=== PATIENT | male | born 1975 | race Two or more races ===

== ENCOUNTER 2017-06-12 13:19 | Emergency (ER) | payer OTHER ==
[2017-06-12 13:51] VITALS: BMI 45.6
--- NOTE | 2017-06-12 14:41 | PDOC ---
History of Present Illness - General Chief Complaint: Headache Stated Complaint: HEADACHE Time Seen by Provider: 06/12/17 14:24 - History of Present Illness Initial Comments: 06/12/17 14:39 41 yo M with h/o COPD, migraines, and opioid dependence who presents with HOLM. Patient reports sudden onset severe, bitemporal, pulsating, and sharp quality headache with retrobulbar radiation 1 hour [employer]. Associated with transient period of vertigo, upper extremity numbness/tingling, tremulousness, nausea, and warm skin flushing prior to onset of headache. + Photobphobia and visual halos. Denies olfactory sensation, tension type quality, or lacrimation/ rhinorrhea or other autonomic complaints. Attempted warm bath and Aleve for HOLM with no relief. Denies chest pain, SOB, weakness, seizures, vomiting, abdominal pain, urinary complaints, LOC. Drinks 7-8 cups/coffee per day. Denies h/o prior head imaging. No neurologist. PCP is Past History - Past Medical History Allergies/Adverse Reactions: Allergies Allergy/AdvReac Type Severity Reaction Status Date / Time No Known Allergies Allergy Verified 06/12/17 15:44 Home Medications: Ambulatory Orders NK [No Known Home Medication] 01/25/15 COPD: Yes Other medical history: headaches - Immunization History Immunization Up to Date: No - Suicide/Smoking/Psychosocial Hx Smoking History: Current every day smoker Have you smoked in the past 12 months: Yes Number of Cigarettes Smoked Daily: 12 Information on smoking cessation initiated: Yes 'Breaking Loose' booklet given: 06/12/17 Hx Alcohol Use: No Drug/Substance Use Hx: No Substance Use Type: None Review of Systems - Review of Systems Comments:: 06/12/17 14:40 GENERAL/CONSTITUTIONAL: No fever or chills. No weakness. HEAD, EYES, EARS, NOSE AND THROAT: No change in vision. No ear pain or discharge. No sore throat.- CARDIOVASCULAR: No chest pain or shortness of breath RESPIRATORY: No cough, wheezing, or hemoptysis. GASTROINTESTINAL: + nausea. No vomiting, diarrhea or constipation. GENITOURINARY: No dysuria, frequency, or change in urination. MUSCULOSKELETAL: No joint or muscle swelling or pain. No neck or back pain. SKIN: No rash NEUROLOGIC: + headache, vertigo, loss of consciousness, or change in strength/ sensation. ENDOCRINE: No increased thirst. No abnormal weight change HEMATOLOGIC/LYMPHATIC: No anemia, easy bleeding, or history of blood clots. ALLERGIC/IMMUNOLOGIC: No hives or skin allergy. *Physical Exam - Vital Signs Last Vital Signs Temp Pulse Resp BP Pulse Ox 98.9 F 96 H 16 144/82 98 06/12/17 13:47 06/12/17 13:47 06/12/17 13:47 06/12/17 13:47 06/12/17 13:47 - Physical Exam Comments: 06/12/17 14:40 GENERAL: Awake, alert, and fully oriented, in no acute distress HEAD: No signs of trauma, normocephalic, atraumatic EYES: PERRLA, EOMI, sclera anicteric, conjunctiva clear ENT:Hearing grossly normal, nares patent, oropharynx clear without exudates. Moist mucosa NECK: Normal ROM, no JVD, or masses LUNGS: No distress, speaks full sentences, clear to auscultation bilaterally HEART: Regular rate and rhythm, normal S1 and S2, no murmurs, rubs or gallops, peripheral pulses normal and equal bilaterally. EXTREMITIES : Normal inspection, Normal range of motion, no edema. No clubbing or cyanosis. NEUROLOGICAL: Cranial nerves II through XII grossly intact. Normal speech, normal gait, no focal sensorimotor deficits. Normal TATI, and absent dysmetria on FTN. 5/5 strength in BL UE/LE. Reflexes 2+ BL. SKIN: Warm, Dry, normal turgor, no rashes or lesions noted. ED Treatment Course - LABORATORY CBC & Chemistry Diagram: 06/12/17 15:15 06/12/17 15:15 Medical Decision Making - Medical Decision Making 06/12/17 14:40 41 yo M with h/o COPD, migraines, and opioid dependence who presents with sudden onset severe, bitemporal, pulsating, and sharp quality headache with retrobulbar radiation 1 hour [employer]. No focal neruo deficits on physical exam and hemodynamically stable. Will obtain Head CT to r/o SAH in setting of rapid onset, and maximal intensity HOLM. Low suspicion for meningitis with absent meningismus, non toxic appearing, absent fevers/chills. Consider metabolic workup for cause of HOLM. Suspect that this is migraine w/aura. Will treat symptomatically. ED Course: CBC, CMP CT HEAD NON CON Reglan 10 mg , Diphenhydramine 25 mg, 1 L NS, Toradol 30 IVP 06/12/17 16:22 CBC Unremarkable 06/12/17 17:12 CMP: Unremarkable CT HEAD: No acute intracranial pathology. Mucosal thickening of ethmoid air cells. Patient is stable for D/c with return precatutions and referall to outpatient neurology. *DC/Admit/Observation/Transfer Diagnosis at time of Disposition: Migraine Qualifiers: Migraine type: with aura Status migrainosus presence: without status migrainosus Intractability: intractable Qualified Code(s): G43.119 - Migraine with aura, intractable, without status migrainosus - Discharge Dispostion Disposition: HOME Condition at time of disposition: Stable Admit: No - Referrals Referrals: Willard Jaimes MD [Staff Physician] - Son Caceres MD [Staff Physician] - - Patient Instructions Printed Discharge Instructions: Migraine -- Adult Additional Instructions: Please return to the emergency department with new or worsening symtpoms or concerns. Please follow up with neurology outpatient and primary care physican. - Post Discharge Activity - Attestations Physician Attestion: 06/12/17 17:15 I attest to the information provided in this note.
[2017-06-12] MEDS ORDERED: METOCLOPRAMIDE HCL INJECTION 10 MG/2 ML VIAL IVPUSH ONE (14:58)
[2017-06-12] MEDS ORDERED: SODIUM CHLORIDE 1,000 ML IV STA (14:58)
[2017-06-12] MEDS ORDERED: KETOROLAC TROMETHAMINE 60 MG/2 ML VIAL IM ONE (15:04)
[2017-06-12] MEDS ORDERED: KETOROLAC TROMETHAMINE 30 MG/1 ML VIAL IVPUSH ONE (15:05)
[2017-06-12] MEDS ORDERED: METOCLOPRAMIDE HCL INJECTION 10 MG/2 ML VIAL ONE (15:27)
[2017-06-12 15:41] LABS: BASOPHIL 0.1 % (0-2.0); EOSINOPHIL 0.2 % (0-4.5); MCH 27.2 pg (25.7-33.7); MCHC 33.4 g/dl (32.0-35.9); MEAN CELL VOLUME 81.5 fl (80-96); MEAN PLT VOLUME 7.4 fl (7.5-11.1); NEUTROPHILS 89.2 % (42.8-82.8); PLATELET COUNT 266 K/MM3 (134-434); RDW 14.7 % (11.9-15.9); WHITE BLOOD COUNT 11.9 K/mm3 (4.0-10.0)
--- NOTE | 2017-06-12 15:47 | PDOC ---
Attending Attestation - Resident Resident Name: Jass Arnold - ED Attending Attestation I have performed the following: I have examined & evaluated the patient, The case was reviewed & discussed with the resident, I agree w/resident's findings & plan, Exceptions are as noted - HPI HPI: 06/12/17 17:04 41-year-old male with a history of migraines and frequent headaches here today complaining of worse headache than usual. Patient denies fevers chills, no head trauma. No weakness. Unsure what triggered this headache however does state that his is currently sick with a pneumonia and a viral syndrome. No nausea no vomiting no weakness no other current complaints denies sinus congestion - Physicial Exam PE: 06/12/17 17:05 awake alert no acute distressLungs are clear bilaterally to auscultation. Heart is regular no murmurs rubs or gallops. Abdomen soft and nontender. Extremities warm well perfused no edema. Neurological alert and oriented 3, 5 / 5 all 4 extremities strength. Skin warm and dry no rash - Medical Decision Making 06/12/17 17:06 41-year-old male Plan CT head to rul, electrolytes, And symptom cControl. Patient is feeling better following medications. Labs and electrolytes are normal. CT head is unremarkable. We'll discharge home with neurology follow-up Heart Score/ECG Review #1 General ECG Interpretation: Sinus Rhythm, Normal Rate (91), Normal Intervals, No acute ischemic changes
[2017-06-12] MEDS ORDERED: KETOROLAC TROMETHAMINE 30 MG/1 ML VIAL ONE (15:53)
[2017-06-12 16:01] LABS: ALBUMIN 4.1 g/dl (3.4-5.0); ALK PHOS 106 U/L (45-117); ANION GAP 12 (8-16); BILIRUBIN,TOTAL 0.3 mg/dL (0.2-1.0); CALCIUM 8.6 mg/dL (8.5-10.1); CO2 24 mmol/L (21-32); CREATININE 0.8 mg/dL (0.7-1.3); GLUCOSE,RANDOM 102 mg/dL (74-106); SGOT/AST 34 U/L (15-37); SGPT/ALT 51 U/L (12-78); TOT PROT 7.7 g/dl (6.4-8.2)
[2017-06-12 17:30] VITALS: BP 144/80; PULSE 94; TEMP 98.6
== END 2017-06-12 17:30 | disposition home or self-care (01) ==
LOC: JER 13:19
PROC: 3E0333Z Introduction of Anti-inflammatory into Peripheral Vein, Percutaneous Approach (ICD-10-PCS; principal; 2017-06-12)
PROC: 3E033GC Introduction of Other Therapeutic Substance into Peripheral Vein, Percutaneous Approach (ICD-10-PCS; 2017-06-12)
PROC: 3E033GC Introduction of Other Therapeutic Substance into Peripheral Vein, Percutaneous Approach (ICD-10-PCS; 2017-06-12)
DX: G43.119 Migraine with aura, intractable, without status migrainosus (principal); F11.20 Opioid dependence, uncomplicated; J44.9 Chronic obstructive pulmonary disease, unspecified; F17.210 Nicotine dependence, cigarettes, uncomplicated
CPT/HCPCS: 36415; 70450-TC; 80053; 85025; 99281-25

== ENCOUNTER 2017-09-16 23:10 | Emergency (ER) | payer OTHER ==
[2017-09-16 23:31] VITALS: BP 108/69; PULSE 98; TEMP 100.1; BMI 27.3
--- NOTE | 2017-09-17 02:19 | PDOC ---
History of Present Illness - General Chief Complaint: Eye Problem Stated Complaint: EYE PAIN Time Seen by Provider: 09/17/17 02:06 History Source: Patient Exam Limitations: No Limitations - History of Present Illness Initial Comments: CHIEF COMPLAINT: 41 y/o male with tender swollen area to upper right eyelid today. HISTORY OF PRESENT ILLNESS: The patient states when he flips his eyelid there is a little bump. He denies all other symptoms. Vital signs on arrival are notable for pulse of 98 and temp of 100.1. REVIEW OF SYSTEMS: GENERAL/CONSTITUTIONAL: No fever/chills. No weakness. No weight change. HEAD, EYES, EARS, NOSE AND THROAT: +painful swollen area to upper right eyelid. No change in vision. No ear pain or discharge. No sore throat. MUSCULOSKELETAL: No joint or muscle swelling or pain. No neck or back pain. SKIN: No rash or easy bruising. NEUROLOGIC: No headache, vertigo, loss of consciousness, or loss of sensation. PHYSICAL EXAM: GENERAL: The patient is awake, alert, and fully oriented, in no acute distress. HEAD: Normal with no signs of trauma. ENT: Pupils equal, round and reactive to light, extraocular movements intact, sclera anicteric, conjunctiva clear. edematous right upper eyelid. Hordeolum to lateral upper inner right eyelid. EXTREMITIES: Normal range of motion, no edema. NEUROLOGICAL: Normal speech, normal gait. CN II-XII grossly intact. Past History - Past Medical History Allergies/Adverse Reactions: Allergies Allergy/AdvReac Type Severity Reaction Status Date / Time No Known Allergies Allergy Verified 09/16/17 23:28 Home Medications: Ambulatory Orders NK [No Known Home Medication] 01/25/15 COPD: No Other medical history: Pt denies - Immunization History Immunization Up to Date: No - Suicide/Smoking/Psychosocial Hx Smoking History: Never smoked Have you smoked in the past 12 months: Yes Number of Cigarettes Smoked Daily: 12 Information on smoking cessation initiated: No 'Breaking Loose' booklet given: 06/12/17 Hx Alcohol Use: No Drug/Substance Use Hx: No Substance Use Type: None *Physical Exam - Vital Signs Last Vital Signs Temp Pulse Resp BP Pulse Ox 100.1 F H 98 H 20 108/69 98 09/16/17 23:28 09/16/17 23:28 09/16/17 23:28 09/16/17 23:28 09/16/17 23:28 Medical Decision Making - Medical Decision Making A/P: 41 y/o male with right sided hordeolum. Instructed him to apply warm compresses multiple times per day and f/u with referred catcher helper in 2 weeks if no improvement. Was going to give him erythro ointment but he left the ER before I could get it to him. The patient verbalizes understanding of all instructions, has no further questions and is awaiting discharge. *DC/Admit/Observation/Transfer Diagnosis at time of Disposition: Hordeolum externum right upper eyelid - Discharge Dispostion Disposition: HOME Condition at time of disposition: Good - Referrals Referrals: Charles Padgett MD [Primary Care Provider] - Oj Christie MD [Staff Physician] - - Patient Instructions Printed Discharge Instructions: DI for Hordeolum Additional Instructions: Discharge Instructions: -Use eye ointment as directed -Apply warm compresses to affected area -Follow up with Dr. Barrow if no improvement in symptoms within 2 weeks - Post Discharge Activity
[2017-09-17] MEDS ORDERED: ERYTHROMYCIN 0.5% OPHTHALMIC OINTMENT 3.5 GM TUBE OD ONE (02:25)
[2017-09-17] MEDS ORDERED: ERYTHROMYCIN 0.5% OPHTHALMIC OINTMENT 3.5 GM TUBE ONE (02:33)
== END 2017-09-17 02:38 | disposition home or self-care (01) ==
LOC: JER 23:10
DX: H00.011 Hordeolum externum right upper eyelid (principal)
CPT/HCPCS: 99281-25